=== PATIENT | female | born 1975 | race Caucasian/White ===

== ENCOUNTER 2018-11-17 09:52 | Outpatient (CLI) | payer OTHER ==
[~2018-11-17 09:52] MED LIST: COZAAR100 MG PO; HYDROCHLOROTH12.5 MG PO; LEVO-T100 MCG PO; PROTONIX20 MG PO
== END 2018-11-17 10:02 | disposition home or self-care (01) ==
LOC: MAMO-SONO 09:52
DX: C50.411 Malignant neoplasm of upper-outer quadrant of right female breast (principal); N60.11 Diffuse cystic mastopathy of right breast; N60.12 Diffuse cystic mastopathy of left breast

== ENCOUNTER 2018-12-18 09:36 | Outpatient (CLI) | payer OTHER | END 2018-12-18 09:44 | disposition home or self-care (01) | LOC: SONOGRAMA 09:36 | DX: C50.411 Malignant neoplasm of upper-outer quadrant of right female breast (principal); N60.11 Diffuse cystic mastopathy of right breast; N60.12 Diffuse cystic mastopathy of left breast ==

== ENCOUNTER → 2019-04-06 | Outpatient (CLI) | payer OTHER | END | disposition home or self-care (01) | LOC: NUCLEAR 08:30 | DX: C50.811 Malignant neoplasm of overlapping sites of right female breast (principal) | CPT/HCPCS: 78306; A9503 ==

== ENCOUNTER 2019-04-13 08:07 | Outpatient (CLI) | payer OTHER | END 2019-04-13 08:14 | disposition home or self-care (01) | LOC: TOM 08:07 | DX: C50.811 Malignant neoplasm of overlapping sites of right female breast (principal) ==

== ENCOUNTER 2019-05-13 10:37 | Outpatient (CLI) | payer OTHER | END 2019-05-13 14:48 | disposition home or self-care (01) | LOC: SONOGRAMA 10:37 | DX: N60.12 Diffuse cystic mastopathy of left breast (principal); N60.11 Diffuse cystic mastopathy of right breast; C50.411 Malignant neoplasm of upper-outer quadrant of right female breast ==

== ENCOUNTER 2020-07-20 09:43 | Outpatient (CLI) | payer OTHER | END 2020-07-20 09:55 | disposition home or self-care (01) | LOC: MAMO-SONO 09:43 | PROVIDERS: ATTEND Surgery | DX: N60.11 Diffuse cystic mastopathy of right breast (principal); N60.12 Diffuse cystic mastopathy of left breast; C50.411 Malignant neoplasm of upper-outer quadrant of right female breast ==

== ENCOUNTER 2021-01-24 08:01 | Outpatient (CLI) | payer OTHER | END 2021-01-24 08:28 | disposition home or self-care (01) | LOC: TOM 08:01 | PROVIDERS: ATTEND Internal Medicine Cardiovascular Disease | DX: J98.8 Other specified respiratory disorders (principal) ==

== ENCOUNTER 2021-02-21 08:50 | Outpatient (CLI) | payer OTHER | END 2021-02-21 08:52 | disposition home or self-care (01) | LOC: NUCLEAR 08:50 | PROVIDERS: ATTEND Internal Medicine Hematology & Oncology | DX: C50.811 Malignant neoplasm of overlapping sites of right female breast (principal) | CPT/HCPCS: 78306; A9503 ==

== ENCOUNTER 2021-08-01 10:27 | Outpatient (CLI) | payer OTHER | END 2021-08-01 10:28 | disposition home or self-care (01) | LOC: MAMO-SONO 10:27 | PROVIDERS: ATTEND Surgery | DX: N60.11 Diffuse cystic mastopathy of right breast (principal); N60.12 Diffuse cystic mastopathy of left breast; Z12.31 Encounter for screening mammogram for malignant neoplasm of breast ==

== ENCOUNTER 2021-08-21 14:04 | Outpatient (CLI) | payer OTHER | END 2021-08-21 14:14 | disposition home or self-care (01) | LOC: RAD 14:04 | DX: M54.89 Other dorsalgia (principal) ==

== ENCOUNTER 2022-08-06 09:05 | Outpatient (CLI) | payer OTHER | END 2022-08-06 09:14 | disposition home or self-care (01) | LOC: MAMO-SONO 09:05 | PROVIDERS: ATTEND Surgery | DX: C50.411 Malignant neoplasm of upper-outer quadrant of right female breast (principal); N60.11 Diffuse cystic mastopathy of right breast; N60.12 Diffuse cystic mastopathy of left breast ==

== ENCOUNTER 2022-08-06 10:20 | Outpatient (CLI) | payer OTHER | END 2022-08-06 10:24 | disposition home or self-care (01) | LOC: LAB 10:20 | PROVIDERS: ATTEND Radiology Diagnostic Radiology | DX: J98.4 Other disorders of lung (principal) ==

== ENCOUNTER 2022-08-08 08:02 | Outpatient (CLI) | payer OTHER | END 2022-08-08 08:18 | disposition home or self-care (01) | LOC: TOM 08:02 | PROVIDERS: ATTEND Internal Medicine Hematology & Oncology | DX: C50.811 Malignant neoplasm of overlapping sites of right female breast (principal); J98.4 Other disorders of lung ==

== ENCOUNTER 2022-09-10 08:18 | Outpatient (CLI) | payer OTHER | END 2022-09-10 11:35 | disposition home or self-care (01) | LOC: NUCLEAR 08:18 | PROVIDERS: ATTEND Surgery | DX: C50.411 Malignant neoplasm of upper-outer quadrant of right female breast (principal) | CPT/HCPCS: 78815; A9552 ==

== ENCOUNTER 2023-03-07 07:06 | Outpatient (CLI) | payer OTHER | END 2023-03-07 07:07 | disposition home or self-care (01) | LOC: NUCLEAR 07:06 | PROVIDERS: ATTEND Internal Medicine | DX: I20.8 Other forms of angina pectoris (principal) ==

== ENCOUNTER 2023-07-24 09:44 | Outpatient (CLI) | payer OTHER | END 2023-07-24 09:46 | disposition home or self-care (01) | LOC: SONOGRAMA 09:44 | PROVIDERS: ATTEND Internal Medicine | DX: E04.2 Nontoxic multinodular goiter (principal) ==

== ENCOUNTER 2023-08-12 08:43 | Outpatient (CLI) | payer OTHER | END 2023-08-12 08:47 | disposition home or self-care (01) | LOC: MAMO-SONO 08:43 | PROVIDERS: ATTEND Surgery | DX: N60.11 Diffuse cystic mastopathy of right breast (principal); N60.12 Diffuse cystic mastopathy of left breast; Z12.31 Encounter for screening mammogram for malignant neoplasm of breast ==

== ENCOUNTER 2023-11-24 10:07 | Emergency (ER) | payer OTHER ==
[~2023-11-24] VITALS: Ht 167.6 cm; Wt 72.6 kg
== END 2023-11-24 16:04 | disposition home or self-care (01) ==
LOC: ER 10:08
DX: M54.32 Sciatica, left side (principal)

== ENCOUNTER 2024-08-17 09:38 | Outpatient (CLI) | payer OTHER | END 2024-08-17 09:41 | disposition home or self-care (01) | LOC: MAMO-SONO 09:38 | PROVIDERS: ATTEND Surgery | DX: C50.411 Malignant neoplasm of upper-outer quadrant of right female breast (principal); N60.11 Diffuse cystic mastopathy of right breast; N60.12 Diffuse cystic mastopathy of left breast ==

== ENCOUNTER 2025-01-06 15:48 | Outpatient (CLI) | payer OTHER | END 2025-01-06 15:52 | disposition home or self-care (01) | LOC: RAD 15:48 | PROVIDERS: ATTEND Internal Medicine | DX: M25.511 Pain in right shoulder (principal) ==

== ENCOUNTER 2025-06-07 10:26 | Outpatient (CLI) | payer OTHER | END 2025-06-07 10:38 | disposition home or self-care (01) | LOC: SONOGRAMA 10:26 | PROVIDERS: ATTEND Internal Medicine | DX: E04.2 Nontoxic multinodular goiter (principal) ==

== ENCOUNTER 2025-08-25 07:31 | Outpatient (CLI) | payer OTHER | END 2025-08-25 07:43 | disposition home or self-care (01) | LOC: MAMO-SONO 07:31 | PROVIDERS: ATTEND Surgery | DX: N60.11 Diffuse cystic mastopathy of right breast (principal); N60.12 Diffuse cystic mastopathy of left breast ==